=== PATIENT | female | born 1945 | race Caucasian/White ===

== ENCOUNTER 2025-01-19 20:47 | Emergency (ER) | payer MEDICARE, SELFPAY ==
[2025-01-19 20:44] VITALS: BP 192/85; PULSE 99; RESP 16; TEMP 36.8; O2SAT 98
--- NOTE | 2025-01-19 20:45 | DI.RAD_ITS ---
Exam(s) XR KNEE LT 2V AP,LAT EXAM: XR KNEE LT 2V AP,LAT CLINICAL HISTORY: knee injury. TECHNIQUE: 2D digital imaging was performed of the left knee. Two images were obtained. AP and lateral views were obtained. COMPARISON: No exams were available for comparison FINDINGS: BONES: No acute fracture is present. No bony destructive lesion is seen. JOINTS: The patient has a left total knee arthroplasty. No suspicious lucencies are seen in or around the orthopedic hardware. There is a joint effusion. No loose body. SOFT TISSUE: No soft tissue gas or radiopaque foreign body. IMPRESSION: 1. No acute fracture or dislocation. 2. Small joint effusion. 3. The preliminary [facility] report was reviewed. DATA REPOSITORY: RADIATION DOSE DELIVERED:
[2025-01-19] MEDS: ceFAZolin 2 GM/50 ML BAG IVPB (21:34)
[2025-01-19 21:42] LABS: Abs Immature Grans 0.02 10^3/uL (0.0-0.06); HCT 38.3 % (36.0-46.0); HGB 13.6 g/dL (11.2-15.7); Immature Grans % 0.3 %; MCH 32.8 pg (27.0-33.0); MCHC 35.5 % (32.0-36.0); MCV 92 fL (80-95); MPV 9.3 fL (8.0-11.0); Platelet Count 196 10^3/uL (130-400); RBC 4.15 10^6/uL (3.93-5.22); RDW 11.9 % (11.7-14.6); RDW-SD 40.0 fL; WBC 6.97 10^3/uL (4.4-10.8)
--- NOTE | 2025-01-19 21:45 | ED.GENADUL_ITS ---
Discharge Plan Disposition Patient Disposition: Transfer-Acute Inpatient Care Specific Acute Inpt Facility: Other Condition: Stable Discharge Details Clinical Impression: Dehiscence of operative wound Primary Care Provider: [facility],Local ED Provider: Darien Weller Home Meds and New Rx's Prescriptions: No Action amlodipine 5 mg tablet 5 mg PO DAILY HPI General Date/Time Provider Initiated Documentation: 01/19/25 20:51 . Limitations to Documentation: no limitations . Information obtained by: patient . HPI Narrative: 79-year-old female with past medical history of hypertension presents for evaluation of left knee injury. Just prior to arrival the patient was playing [employer] golf when she tripped and fell. She landed directly onto her left knee. She reports that her surgical incision completely opened. She has not been able to bear weight since the injury. She reports that she had surgery in December, a total knee replacement done at [facility] Related Data Home Medications ?Medication ?Instructions ?Recorded ?Confirmed amlodipine 5 mg tablet 5 mg PO DAILY 01/19/2501/19 Allergies Allergy/AdvReac Type Severity Reaction Status Date / Time amoxicillin Allergy Mild rash Verified 01/19/25 20:52 General Stated Complaint: Orthopedic ANDREINA: 3 Exam Narrative Exam Narrative: Review of Systems: All systems reviewed & are unremarkable except as noted in HPI and below Well-developed, no acute distress NCAT PERRL, normal conjunctiva RRR Unlabored respiratory effort Nondistended abdomen Left knee with anterior very clean dehiscence of surgical incision, approximately 10 cm, no active bleeding but significant blood pooling within the wound Course Vital Signs Vital signs: Vital Signs Temperature 36.8 C 01/19/25 20:44 Pulse 99 H 01/19/25 20:44 Respiratory Rate 16 01/19/25 20:44 Blood Pressure 192/85 H 01/19/25 20:44 Pulse Oximetry 98 01/19/25 20:44 Temperature 36.8 C 01/19/25 20:44 Pulse 99 H 01/19/25 20:44 Respiratory Rate 16 01/19/25 20:44 Blood Pressure 192/85 H 01/19/25 20:44 Pulse Oximetry 98 01/19/25 20:44 Pain Level 1 01/19/25 20:44 Medical Decision Making Emergent evaluation of left knee injury. Patient is postoperative total knee replacement, she has a complete opening of her surgical incision. The patient did not have surgery at this facility. The patient has not tried ambulation. She reports there is minimal pain without movement. Initial plan for x-ray, 2 g of Ancef will be given. I have reached out to her surgeon who has accepted the patient to transfer back to [facility]. The patient will be transferred via ambulance. [facility] All Active Problems (Updated 01/19/25 @ 21:51 by Darien Weller MD) Dehiscence of operative wound (Acute) Social History Smoking/Tobacco Use Status: Never Smoking risk assessment performed?: Yes Alcohol Intake: current Alcohol Intake frequency: holidays/special occasions only Drug use: Never Substance use type: does not use Do you feel safe at home: Yes Do you feel safe in your relationship?: Yes
[2025-01-19 21:52] LABS: Anion Gap 9.1 mmol/L (3-11); BUN 21 mg/dL (7-18); CO2 27.9 mmol/L (21.0-32.0); Calcium 9.4 mg/dL (8.5-10.1); Chloride 102 mmol/L (98-107); Estimated GFR 75.37 (mL/min/1.73m2); Glucose 127 mg/dL (74-106); Potassium 4.0 mmol/L (3.5-5.1); Sodium 139 mmol/L (136-145)
[2025-01-19 22:00] LABS: INR 1.0 (0.9-1.1); Prothrombin Time 10.2 sec (9.1-11.1)
--- NOTE | 2025-01-19 22:42 | DI.[facility]_ITS ---
PROCEDURE INFORMATION: Exam: XR Left Knee Exam date and time: 01/19/2025 9:17 PM Age: 79 years old Clinical indication: Pain; Left; Prior surgery; Surgery date: <1 month; Surgery type: Knee replacement December 08 TECHNIQUE: Imaging protocol: Radiologic exam of the left knee. Views: 1 or 2 views. COMPARISON: No relevant prior studies available. FINDINGS: Bones/joints: Knee prosthesis. No evidence of hardware complication or acute fracture. Equivocal small volume suprapatellar knee joint effusion. Soft tissues: Superficial edema of the lower extremity in the knee region. IMPRESSION: 1. Knee prosthesis. No evidence of hardware complication or acute fracture. 2. Equivocal small volume suprapatellar knee joint effusion. 3. Superficial edema of the lower extremity in the knee region. Dictated and Authenticated by: Rene Blackburn MD. Orderin Nithin Rose MD
== END 2025-01-19 22:29 | disposition short-term general hospital (02) ==
PROVIDERS: Emergency Provider Emergency Medicine
DX: T81.31XA Disruption of external operation (surgical) wound, not elsewhere classified, initial encounter (principal); M25.462 Effusion, left knee; I10 Essential (primary) hypertension; Z96.652 Presence of left artificial knee joint
CPT/HCPCS: 80048; 96365; 99285; 73560; 85025; 85610; J0690